=== PATIENT | male | born 2000 | race African-American/Black ===

== ENCOUNTER 2023-11-29 19:29 | Observation (INO) | payer OTHER ==
[~2023-11-29] VITALS: Ht 170.2 cm; Wt 97.5 kg
[2023-11-29] MEDS ORDERED: ISOVUE-370 76% 100ML VIAL As Ordered ONE (20:38)
[2023-11-29 20:39] LABS: BASO # 0.1 10^3/uL (0.0-0.2); BASO % 0.4 % (0.0-1.0); EOS # 0.1 10^3/uL (0.0-0.5); EOS % 0.4 % (0.0-3.0); HEMATOCRIT 41.2 % (42.0-52.0); LYMPH # 2.3 10^3/uL (1.5-5.0); LYMPH % 16.8 % (24.0-44.0); MEAN CORPUSCULAR HEMOGLOBIN 32.2 pg (27.0-33.0); MEAN CORPUSCULAR VOLUME 94.7 fl (80.0-96.0); MONO # 1.3 10^3/uL (0.0-0.8); MONO % 9.3 % (2.0-8.0); NEUTROPHILS # 9.5 10^3/uL (1.5-8.5); NEUTROPHILS % 68.9 % (36.0-66.0); PLATELET COUNT, AUTOMATED 396 10^3/uL (150-450); RED BLOOD COUNT 4.35 10^6/uL (4.30-6.10); WHITE BLOOD COUNT 13.8 10^3/uL (4.0-10.0)
[2023-11-29] MEDS: dexAMETHasone 20MG/5ML VIAL IV ONE (20:41)
[2023-11-29] MEDS: AMPICILLIN SOD/SULBACTAM SOD 3 GM in D5W MINI-BAG PLUS 100 ML IV ONE (20:41)
[2023-11-29] MEDS: NS 1,000 ML IV ONE (20:42)
[2023-11-29 20:57] LABS: ERYTHROCYTE SEDIMENTATION RATE 114 mm/hr (0-15)
[2023-11-29 21:04] LABS: MONO REFLEX EBV COMP NEGATIVE (NEGATIVE)
[2023-11-29] MEDS ORDERED: MAALOX 30 ML SUSP *UDC PO PRN (21:55)
[2023-11-29] MEDS ORDERED: IBUP-1730 PO (21:59)
[2023-11-29] MEDS ORDERED: HOME MED LIST COMPLETE! XX SCH (22:10)
[2023-11-29] MEDS: LR 1,000 ML IV SCH (22:19)
[2023-11-29] MEDS: CHLORHEXIDINE GLUCONATE 0.12 % 15ML UDC (PERIDEX ORAL RINSE) MT SCH (22:19)
[2023-11-29 22:50] VITALS: BP 113/70; TEMP 97.5; O2SAT 99
[2023-11-29 23:09] LABS: INR 1.13; PARTIAL THROMBOPLASTIN TIME 29.6 SECONDS (24.8-34.2); PROTHROMBIN TIME 14.2 SECONDS (12.5-14.5)
[2023-11-29 23:22] LABS: ALBUMIN 3.1 G/DL (3.2-5.2); ALKALINE PHOSPHATASE 79 U/L (46-116); ALT/SGPT 59 U/L (7.0-40); AST/SGOT 35 U/L (<34); BILIRUBIN,TOTAL 0.5 MG/DL (0.3-1.2); BLOOD UREA NITROGEN 8 MG/DL (9-23); CALCIUM LEVEL 8.8 MG/DL (8.5-10.1); CARBON DIOXIDE LEVEL 25 MMOL/L (20-31); CHLORIDE LEVEL 104 MMOL/L (98-107); CREATININE FOR GFR 1.03 MG/DL (0.70-1.30); GLOMERULAR FILTRATION RATE > 60.0 (>60); GLUCOSE, FASTING 90 MG/DL (60-100); SODIUM LEVEL 137 MMOL/L (136-145); TOTAL PROTEIN 7.3 G/DL (5.7-8.2)
[2023-11-29 23:23] LABS: GC DNA AMPLIFICATION NEGATIVE (NEGATIVE)
[2023-11-30] VITALS (9 sets, daily range): BP systolic 111–150; BP diastolic 63–78; TEMP 97.7–99.3; O2SAT 95–100
[2023-11-30] MEDS: AMPICILLIN SOD/SULBACTAM SOD 3 GM in D5W MINI-BAG PLUS 100 ML IV SCH (04:01)
[2023-11-30 06:59] LABS: HEMATOCRIT 39.7 % (42.0-52.0); HEMOGLOBIN 13.2 g/dl (13.5-17.5); MEAN CORPUSCULAR HGB CONC 33.2 g/dl (32.0-36.5); MEAN CORPUSCULAR VOLUME 96.1 fl (80.0-96.0); PLATELET COUNT, AUTOMATED 417 10^3/uL (150-450); RED BLOOD COUNT 4.13 10^6/uL (4.30-6.10); WHITE BLOOD COUNT 18.6 10^3/uL (4.0-10.0)
[2023-11-30 07:20] LABS: ERYTHROCYTE SEDIMENTATION RATE 96 mm/hr (0-15)
[2023-11-30 07:41] LABS: PROCALCITONIN 0.32 ng/ml
[2023-11-30 07:44] LABS: ALBUMIN 3.1 G/DL (3.2-5.2); ALKALINE PHOSPHATASE 89 U/L (46-116); ALT/SGPT 58 U/L (7.0-40); AST/SGOT 37 U/L (<34); BILIRUBIN,TOTAL 0.4 MG/DL (0.3-1.2); BLOOD UREA NITROGEN 9 MG/DL (9-23); CARBON DIOXIDE LEVEL 26 MMOL/L (20-31); CHLORIDE LEVEL 103 MMOL/L (98-107); CREATININE FOR GFR 0.92 MG/DL (0.70-1.30); GLOMERULAR FILTRATION RATE > 60.0 (>60); GLUCOSE, FASTING 105 MG/DL (60-100); MAGNESIUM LEVEL 2.1 MG/DL (1.8-2.4); POTASSIUM SERUM 4.9 MMOL/L (3.5-5.1); SODIUM LEVEL 137 MMOL/L (136-145); TOTAL PROTEIN 7.5 G/DL (5.7-8.2)
[2023-11-30] MEDS ORDERED: LIDOCAINE 2% 100MG/5ML SDV (FOR ANES.) As Ordered ONE (17:47)
[2023-11-30] MEDS ORDERED: ROCURONIUM BROMIDE 50MG/5ML VIAL As Ordered ONE (17:47)
[2023-11-30] MEDS ORDERED: propofoL 200 MG/20 ML VIAL As Ordered ONE (17:47)
[2023-11-30] MEDS ORDERED: SUGAMMADEX SODIUM 500 MG/5 ML VIAL (BRIDION) As Ordered ONE (17:47)
[2023-11-30] MEDS ORDERED: MIDAZOLAM INJ 2MG/2ML VIAL As Ordered ONE (17:47)
[2023-11-30] MEDS ORDERED: ePHEDrine SULFATE 25 MG/5 ML(5MG/ML) SYRINGE As Ordered ONE (17:48)
[2023-11-30] MEDS ORDERED: fentaNYL 100 MCG/2 ML INJECTION As Ordered ONE (17:48)
[2023-11-30] MEDS ORDERED: PHENYLephrine 500MCG 5ML (100MCG/ML) SYRINGE As Ordered ONE (17:48)
[2023-11-30] MEDS ORDERED: ONDANSETRON 4MG 2ML VIAL As Ordered ONE (17:48)
[2023-11-30] MEDS ORDERED: KETAMINE HCL 200MG/20ML VIAL As Ordered ONE (18:23)
[2023-11-30] MEDS ORDERED: dexmedeTOMIDine (4MCG/ML)200MCG/50ML BTL (PRECEDEX) As Ordered ONE (18:30)
[2023-11-30] MEDS: LIDOCAINE W/EPINEPHRINE 1% 20ML VIAL As Ordered ONE (18:34)
[2023-11-30] MEDS ORDERED: ACETAMINOPHEN 1000MG 100ML IV BAG As Ordered ONE (18:35)
[2023-11-30] MEDS: OXYMETAZOLINE 0.05% NASAL SPRAY (AFRIN) As Ordered ONE (18:38)
[2023-11-30] MEDS ORDERED: HYDROMORPHONE HCL 0.5 MG/ 0.5 ML SYRINGE IV PRN (18:45)
[2023-11-30] MEDS ORDERED: ONDANSETRON 4MG 2ML VIAL IV PRN (18:45)
[2023-11-30] MEDS ORDERED: fentaNYL 100 MCG/2 ML INJECTION IV PRN (18:45)
[2023-11-30] MEDS: PERCOCET 5MG/325MG TAB PO PRN (19:42)
[2023-11-30] MEDS: LR 1,000 ML IV SCH (20:26)
[2023-11-30] MEDS: HYDROcodone/APAP LIQUID 7.5-325MG 15ML UDC (LORTAB ELIXIR) PO PRN (23:11)
[2023-12-01 01:00] VITALS: BP 118/68; TEMP 98.4; O2SAT 95
[2023-12-01] MEDS: IBUPROFEN 100MG 5ML SUSP UDC DYE FREE PO PRN (03:02)
[2023-12-01 05:04] VITALS: BP 102/58; TEMP 97.5; O2SAT 98
[2023-12-01] MEDS: LR 1,000 ML IV SCH (07:17)
[2023-12-01 08:28] LABS: BASO % 0.2 % (0.0-1.0); HEMATOCRIT 37.9 % (42.0-52.0); HEMOGLOBIN 12.7 g/dl (13.5-17.5); LYMPH # 1.8 10^3/uL (1.5-5.0); MEAN CORPUSCULAR HEMOGLOBIN 31.8 pg (27.0-33.0); MEAN CORPUSCULAR HGB CONC 33.5 g/dl (32.0-36.5); MEAN CORPUSCULAR VOLUME 94.8 fl (80.0-96.0); MONO # 0.7 10^3/uL (0.0-0.8); MONO % 3.2 % (2.0-8.0); NEUTROPHILS # 17.5 10^3/uL (1.5-8.5); NEUTROPHILS % 86.2 % (36.0-66.0); PLATELET COUNT, AUTOMATED 464 10^3/uL (150-450); WHITE BLOOD COUNT 20.4 10^3/uL (4.0-10.0)
[2023-12-01 08:58] LABS: BLOOD UREA NITROGEN 8 MG/DL (9-23); CALCIUM LEVEL 8.7 MG/DL (8.5-10.1); CARBON DIOXIDE LEVEL 28 MMOL/L (20-31); CHLORIDE LEVEL 105 MMOL/L (98-107); CREATININE FOR GFR 0.88 MG/DL (0.70-1.30); GLOMERULAR FILTRATION RATE > 60.0 (>60); GLUCOSE, FASTING 108 MG/DL (60-100); MAGNESIUM LEVEL 1.8 MG/DL (1.8-2.4); POTASSIUM SERUM 4.3 MMOL/L (3.5-5.1); SODIUM LEVEL 140 MMOL/L (136-145)
[2023-12-01] MEDS ORDERED: HYDR-3713 PO (09:26)
[2023-12-01] MEDS ORDERED: AMOX875T2 PO (09:26)
[2023-12-01] MEDS ORDERED: PROBCAP14 PO (09:26)
[2023-12-01 10:00] VITALS: BP 145/83; TEMP 98.2; O2SAT 97
[2023-12-02 13:18] LABS: EBV VIRAL CAPSID AG IgM <36.0 U/mL (0.0-35.9)
== END 2023-12-01 11:18 | disposition home or self-care (01) ==
LOC: M ED 19:29 → M ED INP 19:30 → ENRESERV 22:29 → M MSPAV 22:45
PROVIDERS: ADMIT Internal Medicine; ATTEND Internal Medicine
DX: J36 Peritonsillar abscess (principal); B95.5 Unspecified streptococcus as the cause of diseases classified elsewhere; F17.290 Nicotine dependence, other tobacco product, uncomplicated; Z80.3 Family history of malignant neoplasm of breast
CPT/HCPCS: 36415; 42700; 70491; 80047; 80048; 80053; 83605; 83735; 84145; 85025; 85027; 85610; 85652; 85730; 86140; 86308; 86664; 86665; 87040; 87070; 87076; 87077; 87810; 87850; 87880; 94760; 96361; 96365; 96366; 96375; 96376; 99284; J0131; J0295; J1100; J2250; J2371; J2405; J3010; Q9967